=== PATIENT | male | born 1995 | race Caucasian/White ===

== ENCOUNTER → 2018-02-14 | Outpatient (CLI) | payer BC ==
--- NOTE | 2018-02-14 17:06 | US ---
EXAMINATION TYPE: US scrotum with doppler. Grayscale and color Doppler Duplex imaging performed of herve leroy scrotum. DATE OF EXAM: 02/14/2018 COMPARISON: NONE CLINICAL HISTORY: N50.819 Testicular pain, unspecified. EXAM MEASUREMENTS: TESTICLES: Right Testicle: 1.1 cm Left Testicle: 0.9 cm EPIDIDYMIS HEAD: Right Epididymis: 4.1 x 2.5 x 3.0 cm Left Epididymis: 4.2 x 2.5 x 2.7 cm Doppler performed to assess for testicular vascularity; good bilateral color flow and waveforms are s een. There is no evidence of testicular torsion. Presence of hydroceles: small left hydrocele with internal echoes measuring 2.1 x 0.7 x 1.3cm Presence of varicoceles: no IMPRESSION: 1. Small left-sided hydrocele. Otherwise unremarkable study.
== END | disposition home or self-care (01) ==
LOC: RADUSMAIN 15:39
PROVIDERS: ATTEND Family Medicine
DX: N43.3 Hydrocele, unspecified (principal); N50.819 Testicular pain, unspecified
CPT/HCPCS: 76870; 93975

== ENCOUNTER 2022-08-14 23:24 | Emergency (ER) | payer BC, OTHER ==
[2022-08-14 23:34] VITALS: TEMP 97.9
--- NOTE | 2022-08-15 00:11 | XR ---
EXAMINATION TYPE: XR chest 2V DATE OF EXAM: 08/15/2022 COMPARISON: 10/19/2012 HISTORY: Chest pain TECHNIQUE: FINDINGS: Heart is normal. Lungs are clear. Diaphragm is normal. Bony thorax is intact. The pulmonary vascularity is normal. IMPRESSION: Normal chest.
[2022-08-15] MEDS ORDERED: methylPREDNISolone SOD SUCCI 125 MG/2 ML VIAL IM STA (00:59)
[2022-08-15] MEDS ORDERED: ALBUTEROL NEB (CONC) 2.5 MG/0.5 ML INHALATION STA (00:59)
[2022-08-15] MEDS ORDERED: IPRATROPIUM-ALBUTEROL 3 ML NEB INHALATION STA (00:59)
--- NOTE | 2022-08-15 01:03 | ED ---
SOB HPI - General Chief Complaint: Shortness of Breath Stated Complaint: Asthma, Difficulty Breathing Time Seen by Provider: 08/15/22 00:44 Source: patient, RN notes reviewed Mode of arrival: ambulatory Limitations: no limitations - History of Present Illness Initial Comments: This is a pleasant 26-year-old male with a history of asthma. Patient normally takes Advair and has a rescue inhaler. Patient also has a nebulizer at home. Patient states that he went visiting people's houses today. Patient states there were pets at these houses. Patient states he then started having some wheezing and he is calling an asthma attack. Patient took a nebulizer treatment at home and this did not improve his symptomatology. He is not had a fever. No runny nose. No sore throat. No earache. No headache. Vision states is been years since she has had an asthma attack. Patient states he is ALLERGIC to multiple environmental antigens. No headache, no fever or chills, no changes in vision or hearing, no sore throat or difficulty with speech, no neck pain, no chest pain, no abdominal pain, no nausea or vomiting, no changes in urination or bowel movements, no numbness or tingling, no extremity pain, no skin rashes or lesions. Past medical, surgical, social, and family history reviewed. MD Complaint: shortness of breath - Related Data Previous Rx's Medication Instructions Recorded Albuterol Sulfate [Albuterol 2 puff PO Q6H #8.5 gm 08/15/22 Sulfate Hfa] predniSONE 50 mg PO DAILY #5 tab 08/15/22 Allergies Allergy/AdvReac Type Severity Reaction Status Date / Time No Known Allergies Allergy Verified 08/14/22 23:34 Review of Systems ROS Statement: Those systems with pertinent positive or pertinent negative responses have been documented in the HPI. ROS Other: All systems not noted in ROS Statement are negative. Past Medical History Past Medical History: Asthma History of Any Multi-Drug Resistant Organisms: None Reported Past Surgical History: Tonsillectomy Smoking Status: Former smoker Past Alcohol Use History: Occasional Past Drug Use History: None Reported General Exam - General Exam Comments Initial Comments: Patient mildly tachycardic. Does not appear to be ill or toxic. Capillary refill less than 2 seconds. No mottling, moist mucous membranes, mild increased work of breathing with mild accessory muscle use. Limitations: no limitations General appearance: alert, in distress (Mild) Head exam: Present: atraumatic, normocephalic, normal inspection Eye exam: Present: normal appearance, PERRL, EOMI. Absent: scleral icterus, conjunctival injection, periorbital swelling ENT exam: Present: normal exam, normal oropharynx, mucous membranes moist, TM's normal bilaterally, normal external ear exam. Absent: mucous membranes dry Neck exam: Present: normal inspection, full ROM. Absent: tenderness, meningismus, lymphadenopathy Respiratory exam: Present: wheezes, accessory muscle use, prolonged expiratory. Absent: normal lung sounds bilaterally, respiratory distress, rales, rhonchi, stridor, chest wall tenderness, decreased breath sounds Cardiovascular Exam: Present: regular rate, normal rhythm, tachycardia, normal heart sounds. Absent: systolic murmur, diastolic murmur, rubs, gallop, clicks GI/Abdominal exam: Present: soft, normal bowel sounds. Absent: distended, tenderness, guarding, rebound, rigid Extremities exam: Present: normal inspection, full ROM, normal capillary refill. Absent: tenderness, pedal edema, joint swelling, calf tenderness Back exam: Present: normal inspection Neurological exam: Present: alert, oriented X3, CN II-XII intact Psychiatric exam: Present: normal affect, normal mood Skin exam: Present: warm, dry, intact, normal color. Absent: rash Course Vital Signs 08/14/22 08/15/22 08/15/22 23:30 01:09 01:15 Temperature 97.9 F Pulse Rate 113 H 116 H 111 H Respiratory 18 24 24 Rate Blood Pressure 151/86 142/99 O2 Sat by Pulse 97 91 L Oximetry 08/15/22 08/15/22 01:27 02:39 Temperature 97.9 F Pulse Rate 124 H 90 Respiratory 18 Rate Blood Pressure 137/89 O2 Sat by Pulse 92 L Oximetry - Reevaluation(s) Reevaluation #1: 08/15/22 02:08 Patient reevaluated at 2:05 AM. Doing much better after breathing treatment and corticosteroids. X-ray is negative for acute pathology. Awaiting viral testing. Patient feels well enough to be discharged. Medical Decision Making - Medical Decision Making Was pt. sent in by a medical professional or institution? @ -[no] Did you speak to anyone other than the patient for history? @ -[No] Did you review nursing and triage notes? @ -Agree Were old charts reviewed? @ -No Differential Diagnosis? @ -Asthma exacerbation, infectious process such as COVID-19, influenza, RSV, most likely bacterial pneumonia without fever. Status asthmaticus, pneumothorax, this is not an all-inclusive list. EKG interpreted by me (3pts min.)? @ -[none] X-rays interpreted by me (1pt min.)? @ -No acute findings as read independently by me. Chest x-ray CT interpreted by me (1pt min.)? @ -[none] U/S interpreted by me (1pt. min.)? @ -[none] What testing was considered but not performed? (CT, X-rays, U/S, labs)? Why? @I did consider laboratory investigations to include CBC and CMP. However patient did not appear to be ill or toxic. I do not believe this would change the disposition of the patient. What meds were considered but not given? Why? @ -[none] Did you discuss the management of the patient with other professionals? @ -ED attending physician Did you reconcile home meds? @ -[none] Was smoking cessation discussed for >3mins.? @ -Patient nonsmoker What co-morbidities impacted this encounter? (DM, HTN, Smoking, COPD, CAD, Cancer, CVA, Hep., AIDS, mental health diagnosis, sleep apnea, morbid obesity)? @ -[Asthma] Was patient admitted / discharged? @ -Patient discharged with acute asthma exacerbation. Patient much improved at discharge. Discussed treatment plan with the patient. Discharged her shared decision-making. We'll cover the patient with 5 days of additional prednisone. I did prescribe an albuterol inhaler as the patient states she was short on his. Offered a work note to the patient. Undiagnosed new problem with uncertain prognosis? @ -[none] Drug Therapy requiring intensive monitoring for toxicity (Heparin, Nitro, Insulin, Cardizem)? @ -[none] Were any procedures done? @ -[none] Diagnosis/symptom? @ -Asthma exacerbation Acute, or Chronic, or Acute on Chronic? @ -Acute on chronic Uncomplicated (without systemic symptoms) or Complicated (systemic symptoms)? @ -Complicated Side effects of treatment? @ -[none] Exacerbation, Progression, or Severe Exacerbation] @ -Exacerbation Poses a threat to life or bodily function? @ -Unlikely at time of discharge Patient was told to return to the ER for any signs or symptoms worsen. Told to return immediately if any other problems arise. All questions answered. Treatment plan discussed. Patient in agreement Every effort has been made to ensure accuracy of this dictation. However, due to the limitations of electronic medical records and dictation devices, errors in charting still occur. The case was discussed in detail with ED attending physician. Presentation, findings, treatment plan discussed in detail. Supervising physician Dr. Do - Lab Data Lab Results 08/15/22 Range/Units 01:09 Influenza Type A (PCR) Not Detected (Not Detectd) Influenza Type B (PCR) Not Detected (Not Detectd) RSV (PCR) Not Detected (Not Detectd) SARS-CoV-2 (PCR) Not Detected (Not Detectd) Disposition Clinical Impression: Acute asthma exacerbation Disposition: HOME SELF-CARE Condition: Good Instructions (If sedation given, give patient instructions): Asthma (ED) Additional Instructions: Follow-up with your regular physician as directed. Return to the ER immediately if any symptoms worsen, new symptoms arise, or any other problems develop. Prescriptions: Albuterol Sulfate [Albuterol Sulfate Hfa] 2 puff PO Q6H #8.5 gm predniSONE 50 mg PO DAILY #5 tab Is patient prescribed a controlled substance at d/c from ED?: No Referrals: Benjamín Gibson MD [STAFF PHYSICIAN] - 1-2 days
[2022-08-15 02:40] VITALS: BP 137/89; PULSE 90; RESP 18
== END 2022-08-15 02:40 | disposition home or self-care (01) ==
LOC: EC 23:24
DX: J45.901 Unspecified asthma with (acute) exacerbation (principal); Z87.891 Personal history of nicotine dependence; Z20.822 Contact with and (suspected) exposure to COVID-19
CPT/HCPCS: 99285; 96372; 94640; 87636; 71046; J2930